=== PATIENT | female | born 1980 | race Caucasian/White ===

== ENCOUNTER 2024-08-28 18:21 | Emergency (ER) | payer MEDICARE, SELFPAY ==
[2024-08-28 18:26] VITALS: BP 168/107; PULSE 81; RESP 20; TEMP 36.6; O2SAT 98
--- NOTE | 2024-08-28 18:45 | ED.GENADUL_ITS ---
Discharge Plan Disposition Patient Disposition: Home Condition: Stable Discharge Details Clinical Impression: Sinusitis, Cold sore ED Provider: Samir Cueto Home Meds and New Rx's Prescriptions: New doxycycline hyclate 100 mg tablet 100 mg PO BID Qty: 14 0RF Continued sertraline [Zoloft] 100 mg tablet 100 mg PO DAILY hydroxyzine HCl 50 mg tablet 100 mg PO .PM alprazolam [Xanax] 1 mg tablet 1 mg PO DAILY Discharge Instructions Additional Instructions: Your blood work and x-ray did not show any concerning findings at this time. Take the antibiotic as prescribed. Take the 2 doses of valacyclovir tomorrow morning. Placed on a follow-up list to try and get set up with a primary care provider. If you feel more ill or have new symptoms such as severe difficulty breathing or persistent vomiting return to the emergency department for reevaluation HPI General Mode of arrival: ambulatory . Date/Time Provider Initiated Documentation: 08/28/24 18:24 . Limitations to Documentation: no limitations . Information obtained by: patient . History of Present Illness 44 year old F presents to the emergency department with the chief complaint of sinus pressure, cold sore, stress/anxiety, Patient started experiencing this month(s) (2) and it has been constant. No relieving factors improve symptom(s), No exacerbating factors reported . Patient notes shortness of breath; denies chest pain, fever/chills and nausea/vomiting. Patient did receive the following treatments prior to arrival, none Related Data Home Medications ?Medication ?Instructions ?Recorded ?Confirmed alprazolam 1 mg tablet (Xanax) 1 mg PO DAILY 08/28/24 08/28/24 doxycycline hyclate 100 mg tablet 100 mg PO BID #14 tabs 08/28/24 hydroxyzine HCl 50 mg tablet 100 mg PO .PM 08/28/24 08/28/24 sertraline 100 mg tablet (Zoloft) 100 mg PO DAILY 08/28/24 08/28/24 Previous Rx's ?Medication ?Instructions ?Recorded doxycycline hyclate 100 mg tablet 100 mg PO BID #14 tabs 08/28/24 Allergies Allergy/AdvReac Type Severity Reaction Status Date / Time ciprofloxacin (From Cipro) Allergy Intermediate Hives Verified 08/28/24 18:31 Penicillins Allergy Intermediate Hives Verified 08/28/24 18:31 General Stated Complaint: GenMedical IRMA: 3 Review of Systems All systems reviewed & are unremarkable except as noted in HPI and below Constitutional Constitutional: Denies chills, Denies fever(s) and Denies weakness ENT Ears, Nose, Mouth, and Throat: Reports sinus pain and Reports sinus pressure Cardiovascular Cardiovascular: Denies chest pain and Denies dyspnea Respiratory Respiratory: Reports cough and Denies dyspnea Gastrointestinal Gastrointestinal: Denies abdominal pain, Denies nausea and Denies vomiting Musculoskeletal Musculoskeletal: Denies joint swelling Neurologic Neurologic: Denies weakness Psychiatric Psychiatric: Denies depression Exam Const General: anxious Orientation: alert HENMT Head: normal to inspection Ears: external ears normal General nose exam: external nose normal Mouth: moist mucous membranes Throat: posterior oropharynx normal and uvula midline Eyes General: appearance normal, both eyes and all related structures Neck Neck: normal visual inspection Resp Effort & Inspection: normal respiratory effort and able to speak in complete sentences Auscultation: clear to auscultation bilaterally Cardio Jugular venous pressure: no JVD Rate: regular rate Heart Sounds: no murmurs Skin Lesions: lesion noted Neuro General: patient alert and patient oriented x3 Extrem General: normal to inspection Psych Mental Status: mental status grossly normal Course Vital Signs Vital signs: Vital Signs Temperature 36.6 C 08/28/24 18:26 Pulse 81 08/28/24 18:26 Respiratory Rate 20 08/28/24 18:26 Blood Pressure 168/107 H 08/28/24 18:26 Pulse Oximetry 98 08/28/24 18:26 Temperature 36.6 C 08/28/24 18:26 Pulse 81 08/28/24 18:26 Respiratory Rate 20 08/28/24 18:26 Blood Pressure 168/107 H 08/28/24 18:26 Blood Pressure Position Sitting 08/28/24 18:26 Pulse Oximetry 98 08/28/24 18:26 Oxygen Delivery Method Room Air 08/28/24 18:26 Oxygen Flow Rate 0 08/28/24 18:26 Medical Decision Making 44-year-old female with a history of anxiety and depression comes in with complaints of 2 months of feeling pressure in her sinuses and feels her mucus is draining into the back of her throat and filling up her lungs. She also notes a cold sore for several weeks on the left lower lip. She is anxious about her lungs as she has a prior history of smoking is worried about cancer. She says she moved to the area from [place] in May. She has no PCP currently. She has no fevers, she speaking full sentences and no respiratory distress. She has normal posterior pharynx, she says that maxillary sinuses feel significant pressure. She has no facial swelling. She is clear lung sounds, no JVD or leg swelling. She does have what appears to be some small vesicles on the left lower lip consistent with likely herpes. I suspect sinusitis with her sinus symptoms, she also notes she has had some increased hair loss so we will check a CBC CMP and TSH. Also obtain a chest x-ray. Labs unremarkable x-ray also unremarkable. Patient is stable. Given her sinusitis symptoms has been present for over 2 weeks I will initiate antibiotics, she is a penicillin allergy so will initiate doxycycline. Will also provide valacyclovir for her cold sore. Will place in the follow-up list to try and see a primary care in the area soon as possible for worsening anxiety and concerns about her symptoms of rapid hair loss. She is stable for discharge and return precautions given Differential Diagnosis Differential Diagnosis: Cold sore, sinusitis, anxiety Quality:SDOH Health Related Social Needs: No Data to Display PFSH All Active Problems (Updated 08/28/24 @ 20:07 by Samir Cueto MD) Cold sore (Acute) Sinusitis (Acute) Social History Smoking/Tobacco Use Status: Unknown Smoking risk assessment performed?: Yes Alcohol Intake: never Substance use type: does not use
[2024-08-28 19:02] VITALS: RESP 18
[2024-08-28 19:12] LABS: Abs Immature Grans 0.02 10^3/uL (0.0-0.06); Absolute Basophil Count 0.05 10^3/uL (0.0-0.2); Absolute Eosinophil Count 0.26 10^3/uL (0.0-0.7); Absolute Lymphocyte Count 2.34 10^3/uL (1.2-3.4); Absolute Monocyte Count 0.57 10^3/uL (0.1-0.8); Absolute Neutrophil Count 5.27 10^3/uL (1.2-6.7); Basophils % 0.6 %; Eosinophils % 3.1 %; HCT 42.8 % (36.0-46.0); HGB 14.6 g/dL (11.2-15.7); Immature Grans % 0.2 %; Lymphocytes % 27.5 %; MCH 32.2 pg (27.0-33.0); MCHC 34.1 % (32.0-36.0); MCV 95 fL (80-95); MPV 9.8 fL (8.0-11.0); Monocytes % 6.7 %; Neutrophils % 61.9 %; Platelet Count 323 10^3/uL (130-400); RBC 4.53 10^6/uL (3.93-5.22); RDW 11.2 % (11.7-14.6); RDW-SD 38.5 fL; WBC 8.51 10^3/uL (4.4-10.8)
--- NOTE | 2024-08-28 19:20 | DI.RAD_ITS ---
Exam(s) XR CHEST 2V PA LATERAL EXAM: XR CHEST 2V PA LATERAL CLINICAL HISTORY: dyspnea TECHNIQUE: 2D digital imaging was performed of the chest. Two images were obtained. PA and lateral views were obtained. COMPARISON: No exams were available for comparison FINDINGS: MEDIASTINUM: Normal. HEART: Normal. PULMONARY VASCULATURE: Normal. LUNGS: Clear. PLEURAL SPACE: No pleural effusion or pneumothorax. BONE:Within normal limits for the patient's age. OTHER FINDINGS:Normal. IMPRESSION: No acute pulmonary findings. DATA REPOSITORY: RADIATION DOSE DELIVERED:
[2024-08-28 19:36] LABS: ALT 42 U/L (14-59); AST 31 U/L (15-37); Albumin 4.7 g/dL (3.4-5.0); Alkaline Phosphatase 86 U/L (46-116); Anion Gap 7.6 mmol/L (3-11); BUN 21 mg/dL (7-18); Bilirubin, Total 0.2 mg/dL (0.2-1.0); CO2 32.4 mmol/L (21.0-32.0); CREATININE 0.7 mg/dL (0.55-1.02); Calcium 9.4 mg/dL (8.5-10.1); Chloride 102 mmol/L (98-107); Estimated GFR 109.98 (mL/min/1.73m2); Glucose 113 mg/dL (74-106); Magnesium 2.2 mg/dL (1.8-2.4); Sodium 142 mmol/L (136-145); TSH (W/Ref FT4) 1.26 uIU/mL (0.36-3.74); Total Protein 8.2 g/dL (6.4-8.2)
--- NOTE | 2024-08-28 19:56 | DI.VRAD_ITS ---
PROCEDURE INFORMATION: Exam: XR Chest Exam date and time: 08/28/2024 7:10 PM Age: 44 years old Clinical indication: Dyspnea TECHNIQUE: Imaging protocol: Radiologic exam of the chest. Views: 2 views. COMPARISON: No relevant prior studies available. FINDINGS: Lungs: Unremarkable. No consolidation. Pleural spaces: Unremarkable. No pleural effusion. No pneumothorax. Heart/Mediastinum: Unremarkable. No cardiomegaly. Bones/joints: Unremarkable. IMPRESSION: No acute findings. Dictated and Authenticated by: Handy Cedeno MD. Orderin Rom Dawson MD
[2024-08-28] MEDS: Doxycycline Hyclate 100 MG CAP PO (20:25)
[2024-08-28] MEDS: valACYclovir 1,000 MG TAB 2000 MG PO ×2 (20:25)
== END 2024-08-28 20:25 | disposition home or self-care (01) ==
LOC: ER 20:21
PROVIDERS: Emergency Provider Emergency Medicine
DX: J01.90 Acute sinusitis, unspecified (principal); B00.1 Herpesviral vesicular dermatitis; F41.9 Anxiety disorder, unspecified
CPT/HCPCS: 80053; 99283; 71046; 83735; 84443; 85025